=== PATIENT | female | born 1935 | race Caucasian/White ===

== ENCOUNTER → 2017-11-29 | Outpatient (CLI) | payer OTHER ==
[~2017-11-29] MED LIST: ASPIR 8181 M1 PO; ASPIR 8181 MG PER TUBE; ASPIRIN81 M2 PO; ATENOLOL 100MG100 MG PO; ATORVASTATIN CA40 MG PO; CARDIZEM CD240 MG PO; CLOPIDOGREL75 MG PO; COZAAR 25 MG TA25 M2 PO; COZAAR 50 MG TA50 M2 PO; ELIQUIS2.5 MG PO; FISH OIL 1,001000 M2 PO; HYDROCHLOROTHIA25 M1 PO; HYDROCODON-ACE1 EAC7 PO; IRON325 PO; K-DUR10 MEQ PO; LEVOTHYROXINE 0.1 MG PO; LIDODERM 5%1 PATC1 TRANSDERM; LO-DOSE ASPIRIN81 M1 PO; LOPRESSOR25 PO; MOBIC15 MG PO; NITROGLYCERIN0.4 MG SUBLING; NORCO 5-325 TA1 EACH PO; OXYCODONE HCL 55 MG PO; PLAVIX 75 MG TA75 M1 PO; SAVAYSA60 MG PO; SYNTHROID112 MC1 PO; TRANSDERM-SCOP1 EACH TRANSDERM; XALATAN2.5 ML OPHTHALMIC
== END ==
LOC: M.ULTRA 09:19
DX: I15.0 Renovascular hypertension (principal); N28.1 Cyst of kidney, acquired; I70.1 Atherosclerosis of renal artery; I70.213 Atherosclerosis of native arteries of extremities with intermittent claudication, bilateral legs

== ENCOUNTER 2018-01-01 10:32 | Inpatient (IN) | payer OTHER ==
[2018-01-01] VITALS (12 sets, daily range): BP systolic 119–149; BP diastolic 35–67
[~2018-01-01] VITALS: Ht 154.9 cm; Wt 76.2 kg
[~2018-01-01 10:32] MED LIST changes: -ELIQUIS2.5 MG PO; -HYDROCODON-ACE1 EAC7 PO; -OXYCODONE HCL 55 MG PO; -SYNTHROID112 MC1 PO; -TRANSDERM-SCOP1 EACH TRANSDERM
[2018-01-01 11:10] LABS: ABSOLUTE BASOPHILS 0.1 thou/uL (0.0-0.2); ABSOLUTE EOSINOPHILS 0.2 thou/uL (0.0-0.7); ABSOLUTE LYMPHOCYTES 2.2 thou/uL (0.8-5.3); BASOPHILS 1.3 %; EOSINOPHILS 1.7 %; HEMATOCRIT 41.6 % (37.0-47.0); HEMOGLOBIN 13.4 gm/dL (12.0-15.0); LYMPHOCYTES 19.4 %; MCH 26.8 pg (26.0-34.0); MCHC 32.1 g/dL (28.0-37.0); MCV 83.5 fL (80.0-100.0); MONOCYTES 8.8 %; MPV 7.1 fl. (7.2-11.1); NUCLEATED RBCS 0 /100WBC; PLATELET COUNT* 401 thou/uL (150-400); POLYS 68.8 %; RBC 4.99 mil/uL (4.20-5.00); RDW-CV 18.4 % (10.5-14.5); WBC 11.6 thou/uL (4.0-11.0)
[2018-01-01 11:21] LABS: APTT 27.8 Seconds (25.0-31.3)
[2018-01-01 11:27] LABS: CALCIUM 8.9 mg/dL (8.5-10.1); CREATININE 0.8 mg/dL (0.6-1.3); POTASSIUM 3.4 mmol/L (3.5-5.1)
[2018-01-01 11:32] LABS: ALBUMIN 3.3 g/dL (3.4-5.0); TOTAL BILIRUBIN 0.6 mg/dL (<0.1-1.0); TOTAL PROTEIN 7.4 g/dL (6.4-8.2)
--- NOTE | 2018-01-01 16:11 | NUR ---
PATIENT TRANSFERRED FROM IR TO ROOM 111. ALERT AND ORIENTED. DENIES PAIN. RIGHT GROIN SITE C/D/I. VSS. ADMISSION HISTORY AND ASSESSMENT CHARTED. FAMILY AT BEDSIDE. LIQUIDS PROVIDED. WILL CONTINUE TO MONITOR.
[2018-01-01] MEDS ORDERED: CLOPIDOGREL75 MG PO (21:49)
[2018-01-01] MEDS ORDERED: HYDROCODON-ACE1 EAC7 PO (21:49)
[2018-01-02 01:24] VITALS: BP 119/38
[2018-01-02 01:59] VITALS: BP 119/38
[2018-01-02 03:41] VITALS: BP 130/51
[2018-01-02 04:25] LABS: CALCIUM 8.2 mg/dL (8.5-10.1); CREATININE 0.7 mg/dL (0.6-1.3); POTASSIUM 4.2 mmol/L (3.5-5.1)
[2018-01-02 04:34] LABS: HEMATOCRIT 36.3 % (37.0-47.0); HEMOGLOBIN 11.9 gm/dL (12.0-15.0); MCH 27.1 pg (26.0-34.0); MCHC 32.9 g/dL (28.0-37.0); MCV 82.6 fL (80.0-100.0); MPV 7.2 fl. (7.2-11.1); RBC 4.4 mil/uL (4.20-5.00); RDW-CV 18.4 % (10.5-14.5); WBC 7.9 thou/uL (4.0-11.0)
--- NOTE | 2018-01-02 05:11 | NUR ---
PATIENT HAS REMAINED ALERT AND ORIENTED X 4 THROUGHOUT THE SHIFT AND RESTING QUIETLY ON HOURLY ROUNDS. VITAL SIGNS HAVE REMAINED STABLE. DRESSING RIGHT GROIN CLEAN, DRY AND INTACT. NO CIRCULATORY COMPROMISE. UP TO VOID IN BR. STEADY GAIT. IVF'S, ANTIBIOTICS AND MEDS PER ORDERS. DISCHARGE THIS AM PER ORDERS. CONTINUE TO MONITOR.
[2018-01-02 07:57] VITALS: BP 156/64
[2018-01-02 08:05] VITALS: BP 119/38
[2018-01-02 09:35] VITALS: BP 119/38
--- NOTE | 2018-01-02 09:36 | NUR ---
PATIENT LEFT UNIT AT 0845. ALERT AND ORIENTED X4. UP STAND BY ASSIST IN ROOM. IV DC'D. DENIES NEED FOR PAIN MEDICATION. DENIES NAUSEA. ALL PERSONAL ITEMS LEFT WITH PATIENT. DISCHARGE INSTRUCTIONS, PRESCRIPTIONS, AND NEW MEDICATION INFORMATION SENT WITH PATIENT. VSS ON ROOM AIR. HOURLY ROUNDS HAVE BEEN MAINTAINED THROUGHOUT SHIFT. LEFT WITH SPOUSE VIA CAR.
--- NOTE | 2018-01-04 14:19 | OP ---
[facility] [address] [place] [address] OPERATIVE REPORT Name: BUZZ SANDOVAL Room: [address] IN M.R.#: [id number] Admission: 01/01/18 Attend Phys: Rolf Lebron Discharge: 01/02/18 Date of : 37 Report #: [id number] THIS REPORT FOR: //name// CC: [place] [facility] DATE OF SERVICE: 01/01/2018 PREOPERATIVE DIAGNOSIS: Refractory hypertension, right renal artery stenosis. POSTOPERATIVE DIAGNOSIS: Refractory hypertension, right renal artery stenosis. SURGEON: Dakota Montanez DO. PAINTING AND COATING WORKER: Pamela Garcia PA-C. PROCEDURE: 1. Ultrasound-guided access, right common femoral artery. 2. Limited aortogram. 3. Selective angiography, left renal artery. 4. Selective cannulation, right renal artery with angioplasty and a stent using Herculink 6 mm x 15 mm balloon expandable stent. 5. Limited angiogram, right common femoral artery. 6. Angio-Seal closure, right common femoral artery. ESTIMATED BLOOD LOSS: Minimal. SPECIMEN: None. COMPLICATIONS: None. CONDITION: Stable. DISPOSITION: Observation. INDICATIONS FOR THE PROCEDURE AND CONSENT: The patient is an 82-year-old female with history of renal artery stenosis and refractory hypertension. She is status post left renal artery angioplasty and stent. She has been followed with renal duplexes on an annual basis. She was seen by her physician practice consultant, Dr. Adan, who reported that he was having more and more difficulty with controlling her hypertension and previously had better control after her previous intervention. Repeat duplex demonstrated her left renal artery stent to be patent, but with a concern for more severe stenosis of the right renal artery. Recommendation for angiography was made. Risks and benefits were [address] [address] OPERATIVE REPORT Name: BUZZ SANDOVAL Room: [address]#: [id number] Admission: 01/01/18 Attend Phys: Rolf Lebrno Discharge: 01/02/18 Date of : 37 Report #: [id number] discussed with the patient including infection, bleeding, renal failure, damage to the renal arteries, damage to her lower extremity arteries, embolization and complications related to sedation. The patient did, of note, wish to stay overnight due to living more than 2 hours away and stating that they have difficulty with if there is bleeding or emergency that it takes at least 30-40 minutes to get an ambulance to her house. She intended to stay overnight for observation to avoid due to the risk of at her access site. PROCEDURE IN DETAIL: After timeout was performed, the patient was placed in supine position with sterile prep and drape of the anterior abdomen, bilateral groins, bilateral thighs. Ultrasound was utilized to identify the right common femoral artery and Seldinger technique used to place 6-Greenlandic sheath. Glidewire Advantage and UF catheter were advanced into the pararenal aorta and aortogram performed. This demonstrated the aorta to be widely patent. The bilateral renal arteries appeared to be patent. The left renal artery stent appeared to be wide open, although the origin could not be well visualized initially. This angled views also appeared to demonstrate patency with rapid flow. The patient was administered 6000 units of heparin and was allowed to circulate for 3 minutes. I did select the left renal artery with the Glidewire Advantage and negotiated the UF catheter tip into the renal artery and slow injection revealed a better picture and this did demonstrate the left renal artery to be completely free of stenosis and I was happy with the imaging. I then performed angled views of the right renal artery as well. This demonstrated at least a 60% stenosis of the right renal artery just beyond its origin. There is one image that appeared to have severe stenosis in this at least 70%. As the patient has been having more difficulty with controlling blood pressure, I did feel it is reasonable to treat this as discussed with the patient preoperatively. I then selected the right renal artery with Glidewire Advantage and UF catheter and then exchanged the short 6-Greenlandic sheath for a long 6-Greenlandic sheath to allow for better support. I then exchanged the 0.035 Glidewire Advantage for an 0.018 Glidewire Advantage. This started only before an 0.014 wire. I then obtained a 6 x 15 Herculink stent advanced into position under fluoroscopic magnified views. Prior to deployment using the long 6-Greenlandic sheath, I was able to perform another aortogram to confirm positioning and then deployed the stent. Repeat angiography demonstrated excellent radiographic result without flow limitation or stenosis. The wire and stent were then removed. The 0.035 Glidewire Advantage was then placed back to a 6-Greenlandic sheath and the 6-Greenlandic sheath retracted in the right external iliac artery and limited angiogram of the right external common and proximal superficial femoral arteries were then performed, which demonstrated the external common and femoral vessels to be widely patent without flow limitation or stenosis and appropriate for Angio-Seal closure. The 6-Greenlandic Angio-Seal was selected and advanced in position in standard fashion and deployed. Additional 2 minutes pressure was held for hemostasis. All lap, needle and instrument counts were correct. The [address] [place] [address] OPERATIVE REPORT Name: BUZZ SANDOVAL Room: [address]#: [id number] Admission: 01/01/18 Attend Phys: Rolf Lebron Discharge: 01/02/18 Date of : 37 Report #: [id number] patient tolerated the procedure well. The patient was transferred to recovery in stable condition. <ELECTRONICALLY SIGNED> By: Dakota Montanez DO 01/04/18 1419 1256 1329Dakota Montanez DO /nt
[2018-06-26] MEDS ORDERED: SYNTHROID112 MC1 PO (13:59)
== END 2018-01-02 08:45 | disposition home or self-care (01) | DRG 674 ==
LOC: M.INT 10:32 → M.ORTHSURG 15:36 → M.TBA 15:36 → M.ORTHSURG 15:43
PROVIDERS: Surgery; ADMIT Internal Medicine
PROC: 04C Lower Arteries, Extirpation (ICD-10-PCS; principal; 2018-01-01)
PROC: 047Y3ZZ Dilation of Lower Artery, Percutaneous Approach (ICD-10-PCS; principal; 2018-01-01)
PROC: B4171ZZ Fluoroscopy of Left Renal Artery using Low Osmolar Contrast (ICD-10-PCS; principal; 2018-01-01)
PROC: B41F1ZZ Fluoroscopy of Right Lower Extremity Arteries using Low Osmolar Contrast (ICD-10-PCS; principal; 2018-01-01)
DX: I70.1 Atherosclerosis of renal artery (principal); R71.0 Precipitous drop in hematocrit; E03.9 Hypothyroidism, unspecified; I25.10 Atherosclerotic heart disease of native coronary artery without angina pectoris; I48.91 Unspecified atrial fibrillation; I73.9 Peripheral vascular disease, unspecified; I10 Essential (primary) hypertension; Z79.899 Other long term (current) drug therapy; Z90.710 Acquired absence of both cervix and uterus; Z95.1 Presence of aortocoronary bypass graft; Z98.49 Cataract extraction status, unspecified eye; Z82.49 Family history of ischemic heart disease and other diseases of the circulatory system

== ENCOUNTER → 2018-06-25 | Outpatient (CLI) | payer OTHER ==
[~2018-06-25] MED LIST changes: +ELIQUIS2.5 MG PO; +HYDROCODON-ACE1 EAC7 PO; +OXYCODONE HCL 55 MG PO; +SYNTHROID112 MC1 PO; +TRANSDERM-SCOP1 EACH TRANSDERM
== END ==
LOC: M.MRI 06-16 12:31
DX: S83.231A Complex tear of medial meniscus, current injury, right knee, initial encounter (principal); S83.271A Complex tear of lateral meniscus, current injury, right knee, initial encounter; S83.282A Other tear of lateral meniscus, current injury, left knee, initial encounter; S83.242A Other tear of medial meniscus, current injury, left knee, initial encounter; M17.0 Bilateral primary osteoarthritis of knee; M71.21 Synovial cyst of popliteal space [Baker], right knee; M71.22 Synovial cyst of popliteal space [Baker], left knee; M25.462 Effusion, left knee; M25.461 Effusion, right knee; I10 Essential (primary) hypertension; I48.91 Unspecified atrial fibrillation; E03.9 Hypothyroidism, unspecified; I25.10 Atherosclerotic heart disease of native coronary artery without angina pectoris; X58.XXXA Exposure to other specified factors, initial encounter; Y93.89 Activity, other specified; Y92.89 Other specified places as the place of occurrence of the external cause; Y99.8 Other external cause status

== ENCOUNTER → 2018-06-27 | Outpatient (CLI) | payer OTHER ==
--- NOTE | 2018-06-27 16:48 | EKG ---
[place] [address] ELECTROCARDIOGRAM REPORT Name: BUZZ SANDOVAL MIK Room: [facility]#: [id number] Admission: 06/27/18 Attend Phys: Manohar Jackson MD Discharge: Date of : 36 Report #: [id number] THIS REPORT FOR: //name// [facility] Test Date: 2018-06-27 Test Time: 14:39:20 Pat Name: BUZZ SANDOVAL Department: Room: Gender: F Archeologist Classical: : 1935 Requested By: Manohar Cavazos Order Number: [id number] Reading MD: Yandel Taveras Measurements Intervals [place] Rate: 52 P: -10 GA: 166 QRS: 2 QRSD: 103 T: 54 QT: 474 QTc: 441 Interpretive Statements Sinus rhythm RSR' in V1 or V2, right VCD or RVH Compared to ECG 04/25/2017 13:21:47 Right ventricular hypertrophy now present RSR' in V1 or V2 now present Incomplete right bundle-branch block no longer present Prolonged QT interval no longer present Electronically Signed On 06-27-2018 16:48:33 CDT by Yandel Taveras [email or web address] <ELECTRONICALLY SIGNED> By: Yandel Taveras MD, FAC 06/27/18 1648 1439 1439 Yandel Taveras MD, FAC /EPI
== END ==
LOC: M.LAB 10:34 → M.ULTRA 10:34
DX: I71.2 Thoracic aortic aneurysm, without rupture (principal); I70.213 Atherosclerosis of native arteries of extremities with intermittent claudication, bilateral legs; I51.7 Cardiomegaly; J98.4 Other disorders of lung; M25.78 Osteophyte, vertebrae; I50.9 Heart failure, unspecified

== ENCOUNTER 2018-07-14 06:34 | Inpatient (IN) | payer OTHER ==
[2018-06-27 14:23] LABS: ABSOLUTE BASOPHILS 0.1 thou/uL (0.0-0.2); ABSOLUTE EOSINOPHILS 0.2 thou/uL (0.0-0.7); ABSOLUTE LYMPHOCYTES 1.5 thou/uL (0.8-5.3); ABSOLUTE MONOCYTES 0.8 thou/uL (0.0-1.2); ABSOLUTE NEUTROPHILS 6.5 thou/uL (1.6-8.1); BASOPHILS 1.1 %; EOSINOPHILS 1.8 %; HEMATOCRIT 45.6 % (37.0-47.0); HEMOGLOBIN 15.1 gm/dL (12.0-15.0); LYMPHOCYTES 17.1 %; MCH 29.9 pg (26.0-34.0); MCHC 33.1 g/dL (28.0-37.0); MCV 90.3 fL (80.0-100.0); MONOCYTES 8.4 %; NUCLEATED RBCS 0 /100WBC; PLATELET COUNT* 302 thou/uL (150-400); POLYS 71.6 %; RBC 5.05 mil/uL (4.20-5.00); RDW-CV 18.7 % (10.5-14.5)
[2018-06-27 14:34] LABS: APTT 27.5 Seconds (25.0-31.3); PROTIME 10.1 Seconds (9.20-11.50)
[2018-06-27 14:37] LABS: ALBUMIN 3.6 g/dL (3.4-5.0); CALCIUM 8.4 mg/dL (8.5-10.1); CREATININE 0.8 mg/dL (0.6-1.3); POTASSIUM 3.3 mmol/L (3.5-5.1); TOTAL BILIRUBIN 0.6 mg/dL (<0.1-1.0); TOTAL PROTEIN 7.3 g/dL (6.4-8.2)
[2018-06-27 15:28] LABS: ESR (SEDRATE) 8 mm/hr (0-30)
[~2018-07-14] VITALS: Ht 154.9 cm; Wt 74.8 kg
[~2018-07-14 06:34] MED LIST changes: -ELIQUIS2.5 MG PO; -OXYCODONE HCL 55 MG PO; -TRANSDERM-SCOP1 EACH TRANSDERM
[2018-07-14 07:00] VITALS: BP 162/62
[2018-07-14 12:45] VITALS: BP 151/56
[2018-07-14 16:00] VITALS: BP 166/58
--- NOTE | 2018-07-14 17:50 | NUR ---
ASSUMED CARE OF PATIENT AT 1225. PT ALERT AND ORIENTED X 4. IV PATENT. DENIES NAUSEA. REPORTS PAIN AT 3/10. MEPILEX DRESSING DRY/INTACT. BILAT BRIT HOSE ON. OXYGEN ON AT 2L/NC. ICE PACK ON RIGHT KNEE. PT ORIENTED TO ROOM. WILL USE CALL LIGHT FOR ASSISTANCE. CALL LIGHT WITHIN REACH. NURSING TO CONTINUE TO MONITOR.
--- NOTE | 2018-07-14 20:13 | NUR ---
PT ALERT AND ORIENTED X 4. IVF INFUSING AT 75 MLS/HR. RECEIVED IV ZOFRAN FOR NAUSEA AND IV MORPHINE FOR PAIN. OXYGEN ON @ 2 L/NC. MEPILEX DRESSING IN PLACE DRY AND INTACT. BILAT TEDS ON. ICE PACK IN PLACE. PT UP WITH ASSIST X 2 TO BSC TO VOID. HOURLY ROUNDS MAINTAINED. VS STABLE. WILL USE CALL LIGHT FOR ASSISTNCE. CALL LIGHT WITHIN REACH. AT BEDSIDE. NURSING TO CONTINUE TO MONITOR.
[2018-07-14 21:00] VITALS: BP 126/64
[2018-07-14 23:57] VITALS: BP 140/65
[2018-07-15 04:17] VITALS: BP 131/60
[2018-07-15 04:31] LABS: HEMATOCRIT 40.7 % (37.0-47.0); HEMOGLOBIN 13.3 gm/dL (12.0-15.0); MCHC 32.7 g/dL (28.0-37.0); MCV 91.7 fL (80.0-100.0); MPV 7.3 fl. (7.2-11.1); RBC 4.43 mil/uL (4.20-5.00); RDW-CV 18.3 % (10.5-14.5); WBC 13.5 thou/uL (4.0-11.0)
[2018-07-15 04:50] LABS: CALCIUM 8.3 mg/dL (8.5-10.1); CREATININE 0.8 mg/dL (0.6-1.3); POTASSIUM 4.2 mmol/L (3.5-5.1)
[2018-07-15 07:35] VITALS: BP 143/65
--- NOTE | 2018-07-15 08:30 | NUR ---
PATIENT HAS SLEPT WELL THROUGHOUT THE NIGHT WITHOUT ANY ISSUES. PAIN WELL CONTROLLED WITH ORAL PAIN MEDICATION AND CHARTED. VSS ON 2L 02 VIA NASAL CANNULA AND CAPNO IN PLACE. DRESSING TO RIGHT KNEE IS C/D/I, AND SCD'S AND BRIT HOSE IN PLACE. IV IN RIGHT FOREARM-SL. PATIENT INSTRUCTED TO USE CALL LIGHT WHEN NEEDING ASSISTANCE. HOURLY ROUNDS MADE. WILL CONTINUE WITH PLAN OF CARE AND NURSING TO MONITOR.
--- NOTE | 2018-07-15 13:02 | NUR ---
RECIEVED O.T. ORDERS. WILL DEFER TO P.T. AT THIS TIME. PLEASE ORDER FURTHER O.T. SERVICES IF NEEDED.
[2018-07-15 16:34] VITALS: BP 155/72
--- NOTE | 2018-07-15 16:39 | NUR ---
SPOKE WITH PT.AND . [place] PT.HAS A WALKER AND STOOL RISER. SHE IS NORMALLY INDEPENDENT. VERY SUPPORTIVE. PT.SAID THEIR CHILDREN LIVE UP HERE. USED [facility] ABOUT A YEAR AGO. THEY WOULD LIKE TO USE THEM AGAIN FOR 1-2 WEEKS AND THEN TRANSITION TO OUTPT.THERAPY. WILL MAKE REFERRAL TO [facility] IN AM. CALLED IN PRESCRIPTION FOR ELIQUIS, WRITTEN, TO [facility] IN [place] [phone]. WILL CALL IN AM FOR COPAY.
--- NOTE | 2018-07-15 18:53 | NUR ---
PT ALERT AND ORIENTED X 4. DENIES NAUSEA. PT INDICATED PAIN 03/30. IV PATENT. PAIN MANAGED DURING SHIFT WITH PO OXYCONDONE. PT IS CURRENTLY ON RA. MEPILEX DRESSING DRY/INTACT. BILAT TEDS IN PLACE. ICE PACK IN USE. UP WITH THERAPY IN MORNING AND AFTERNOON. VS STABLE. HOURLY ROUNDS MAINTAINED. WILL USE CALL LIGHT FOR ASSISTANCE. AT BEDSIDE. CALL LIGHT WITHIN REACH. NURSING TO CONTINUE TO MONITOR.
[2018-07-16] VITALS: BP 138/47
[2018-07-16 04:00] VITALS: BP 111/57
[2018-07-16 04:15] LABS: HEMATOCRIT 38.9 % (37.0-47.0); HEMOGLOBIN 12.9 gm/dL (12.0-15.0); MCH 30.4 pg (26.0-34.0); MCHC 33.2 g/dL (28.0-37.0); MCV 91.6 fL (80.0-100.0); MPV 7.3 fl. (7.2-11.1); RBC 4.24 mil/uL (4.20-5.00); RDW-CV 18.2 % (10.5-14.5); WBC 10.8 thou/uL (4.0-11.0)
[2018-07-16 04:33] LABS: CALCIUM 8.6 mg/dL (8.5-10.1); CREATININE 0.8 mg/dL (0.6-1.3); POTASSIUM 3.4 mmol/L (3.5-5.1)
[2018-07-16 08:01] VITALS: BP 156/67
[2018-07-16 09:06] VITALS: BP 156/67
[2018-07-16] MEDS ORDERED: OXYCODONE HCL 55 MG PO (09:35)
[2018-07-16] MEDS ORDERED: TRANSDERM-SCOP1 EACH TRANSDERM (09:35)
[2018-07-16 11:08] VITALS: BP 156/67
[2018-07-16] MEDS ORDERED: ELIQUIS2.5 MG PO (11:08)
[2018-07-16 12:19] VITALS: BP 156/67
--- NOTE | 2018-07-16 12:24 | NUR ---
COPAY FOR DIAMOND IS $21. WILL INFORM PT. REFERRAL MADE TO [facility]-[phone]. FAXED INFORMATION TO INTAKE AT [phone] DISCHARGE PLANNED FOR TODAY.
--- NOTE | 2018-07-16 13:52 | NUR ---
I have reviewed and agree with student nurse Jordyn Musa's reassessment.
--- NOTE | 2018-07-16 15:18 | NUR ---
ASSUMED CARE OF PATIENT AFTER MORNING REPOAT AT APPROX 0730. ALERT AND ORIENTED X4. ASSESSMENT COMPLETED AND CHARTED. VSS ON ROOM AIR. NO COMPLAINTS OF SOA. PAIN AND NAUSEA HAVE BEEN MANAGED WITH MEDICATIONS. PATIENT WORKED WELL WITH THERAPIES. PATIENT DISCHARGED WITH [facility] AT 1500, WITH ALL PERSONAL BALONGINGS, PRESCRIPTIONS, AND DISCHARGE INFORMATION.
--- NOTE | 2018-07-21 08:23 | OP ---
[address] [address] OPERATIVE REPORT Name: BUZZ SANDOVAL Room: [address] IN .R.#: [id number] Admission: 07/14/18 Attend Phys: Rolf Lebron Discharge: 07/16/18 Date of : 36 Report #: [id number] THIS REPORT FOR: //name// CC: [place] [facility] DICTATED BY: Anson Mcdonald DO DATE OF SERVICE: 07/14/2018 DICTATED BY: This is Anson Mcdonald DO dictating an Orthopedic Surgery operative report on behalf of Dr. Manohar Cavazos. PREOPERATIVE DIAGNOSIS: Right knee degenerative joint disease. POSTOPERATIVE DIAGNOSIS: Right knee degenerative joint disease. PROCEDURE: Right total knee arthroplasty utilizing the Mitchell and Nephew Legion knee components utilizing Visionaire-type custom cutting blocks with the following components: 1. Size 4 right PS Legion femoral component. 2. Size 3 Little II right tibial baseplate. 3. Size 3/4, 11-mm Legion PS high-flexion articular insert. 4. A 29 mm oval patella. 5. One bag of Palacos bone cement. SURGEON: Manohar Cavazos DO. WALL CLEANER: Anson Mcdonald DO. ANESTHESIA: Spinal with monitored anesthesia care throughout the case. ANTIBIOTICS: Two grams Ancef IV preoperatively. ESTIMATED BLOOD LOSS: 100 mL. SPECIMENS: None. COMPLICATIONS: None. DISPOSITION: Stable to PACU. He will be admitted to the hospital for standard postoperative care. INDICATION FOR PROCEDURE: The patient is a pleasant 83-year-old female who was seen in Orthopedic Clinic with complaints of chronic right knee pain. On x-ray, [address] [place] [address] OPERATIVE REPORT Name: BUZZ SANDOVAL Room: [address] IN [facility].#: [id number] Admission: 07/14/18 Attend Phys: Rolf Lebron Discharge: 07/16/18 Date of : 36 Report #: [id number] she had significant advanced degenerative changes of right knee. Pain was refractory to conservative measures and impacting her quality of life. It did not respond over 6 months' time with a trial of home physical therapy exercise, activity modifications, oral anti-inflammatories and occasional intra-articular corticosteroid injections. Therefore, we recommended proceeding with a right total knee arthroplasty. Risks, benefits, complications, indications and alternative treatments were discussed and the patient wished to proceed with surgery today. DESCRIPTION OF PROCEDURE: The patient was seen in preoperative holding area and correct operative site, right knee, was initialed. The patient was taken back to the operating suite, placed in supine position on the operating table, given the benefit of general anesthetic. A well-padded tourniquet was placed to the right upper thigh. A spinal had been performed by Anesthesia and they provided light sedation throughout the case; this was not a general. Next, the right lower extremity was prepped and draped in typical fashion. Surgery began with a time-out identifying correct patient, correct procedure, correct operative site, preoperative antibiotics and correct performing surgeon. Next, standard anterior midline incision was made directly overlying the right knee, extending from roughly 3 cm proximal to the superior pole of the patella, extending longitudinally down to the tibial tubercle. Skin was incised with a 20 blade scalpel down to the prepatellar fascia. Medial parapatellar arthrotomy was performed utilizing a new 10 blade scalpel. Patella was everted, knee was flexed. A custom distal femoral cutting block was pinned into place appropriately. Distal femoral cut was performed. A size 4 four-in-one cutting block was then impacted on to the distal femur. Anterior, posterior and anterior-posterior chamfer cuts were made. It seemed to be a rather appropriate size of the component and appropriate rotation for a 4-in-1 cutting block. Next, attention was turned to her tibia. Utilizing the custom tibia cutting block, this was held in place and pinned appropriately. A proximal tibial cut was carried out, protecting our ligamentous and neurovascular structures. Menisci were excised using electrocautery. Remnants of PCL were also debrided at this time. Trial tibia size 3 baseplate was pinned into place in the pre-drilled holes, followed by a trial femoral component. A trial PS insert was then inserted. Attention was turned to the patella. It was resurfaced utilizing the Nigel patellar reamer system. It was drilled to appropriate size, which was size 29 and trial patellar component was inserted. The patella seemed to be tracking appropriately. Knee was stable to varus and valgus stress with an 11-mm trial well as it had full flexion and full extension. Tibia was drilled and a cruciate punched. Box cut was made for our femoral component after initially placing our trial femur in place. Now, all [place] [address] OPERATIVE REPORT Name: BUZZ SANDOVAL Room: [address] .R.#: [id number] Admission: 07/14/18 Attend Phys: Rolf Lebron Discharge: 07/16/18 Date of : 36 Report #: [id number] surfaces were thoroughly irrigated using pulsatile lavage. Final implants were cemented into place in the normal fashion, starting first with the tibia followed by the femur. All excess cement was removed. Final patella button was cemented into place and held with a patellar clamp. It was taken out into extension for a very short period, with a trial 11-mm spacer. This seemed to be fitting appropriately and we then removed the trial spacer, impacted the final polyethylene spacer after one more time checking for posterior cement loose bodies. Again, final polyethylene spacer was impacted into place. Knee was taken out through range of motion one last time, felt to be stable, had full flexion and extension, great mid flexion stability. Patella was flipped into its anatomic position and the knee was let to rest at 90 degrees of flexion. Next, the knee was thoroughly irrigated. Capsule was closed with a few [id number] type #1 Vicryl sutures, followed by running #1 Stratafix suture. Subcutaneous tissues were closed in a simple inverted fashion with 2-0 Monocryl suture. A 3-0 subcuticular Stratafix running suture was performed followed by Dermabond on the skin glue. Standard dressings were applied consisting of Mepilex and a BRIT hose. The patient was weaned from her light sedation and transferred in stable condition to the PACU. All sponge and needle counts were correct x 2. <ELECTRONICALLY SIGNED> By: Manohar Cavazos DO 07/21/18 0823 1108 [id number] Joce Cavazos DO /nt
== END 2018-07-16 15:00 | disposition home health service (06) | DRG 470 ==
LOC: M.PRE → M.TBA 06:38 → M.ORTHSURG 06:38 → M.PRE 06:57 → M.ORTHSURG 12:15 → M.PRE 15:48 → M.ORTHSURG 07-16 15:00
PROVIDERS: Internal Medicine; Orthopaedic Surgery; ADMIT Internal Medicine
PROC: 0SRC0J9 Replacement of Right Knee Joint with Synthetic Substitute, Cemented, Open Approach (ICD-10-PCS; principal; 2018-07-14)
DX: M17.11 Unilateral primary osteoarthritis, right knee (principal); I25.10 Atherosclerotic heart disease of native coronary artery without angina pectoris; I48.91 Unspecified atrial fibrillation; I11.0 Hypertensive heart disease with heart failure; I50.9 Heart failure, unspecified; E03.9 Hypothyroidism, unspecified; I71.2 Thoracic aortic aneurysm, without rupture; Z79.899 Other long term (current) drug therapy; Z91.048 Other nonmedicinal substance allergy status; Z95.1 Presence of aortocoronary bypass graft; I25.2 Old myocardial infarction; Z90.710 Acquired absence of both cervix and uterus; Z98.49 Cataract extraction status, unspecified eye; Z82.49 Family history of ischemic heart disease and other diseases of the circulatory system

== ENCOUNTER → 2021-12-05 | Outpatient (CLI) | payer MEDICARE ==
[~2021-12-05] MED LIST changes: +ELIQUIS2.5 MG PO; +OXYCODONE HCL 55 MG PO; +TRANSDERM-SCOP1 EACH TRANSDERM
--- NOTE | 2021-12-05 13:42 | 2DMMODE ---
[place] [address] 2 D/M-MODE ECHOCARDIOGRAM Name: LORIBUZZ TAMEN Room: [facility]#: [id number] Admission: 12/05/21 Attend Phys: Dania Butler, Discharge: Date of : 37 Date of Service: 12/05/21 1342 Report #: [id number] THIS REPORT FOR: cc: FAM - No family physician/PCP FAM - No family physician/PCP Rusty Adan MD [facility] ~ APPROVED REPORT Study performed: 12/05/2021 13:45:21 EXAM: Comprehensive 2D, Doppler, and color-flow Echocardiogram Patient Location: Out-Patient BSA: 1.73 HR: 76 bpm BP: 135/72 mmHg Other Information Study Quality: Good Indications Atrial Fibrillation 2D Dimensions IVSd: 11.10 (7-11mm) LVOT Diam: 19.64 (18-24mm) LVDd: 44.40 mm PWd: 10.53 (7-11mm) Ascending Ao: 44.17 (22-36mm) LVDs: 26.00 (25-40mm) Aortic Root: 28.85 mm Volumes Left Atrial Volume (Systole) LA ESV Index: 31.80 mL/m2 Aortic Valve AoV Peak Kory.: 1.49 m/s AO Peak Gr.: 8.89 mmHg LVOT Max P.36 mmHg AO Mean Gr.: 4.74 mmHg LVOT Mean P.04 mmHg LVOT Max V: 1.04 m/s AO V2 VTI: 32.51 cm LVOT Mean V: 0.65 m/s EDILMA (VTI): 1.97 cm2 LVOT V1 VTI: 21.17 cm AI Dickson: 2.16 m/s2 AI PHT: 543.18 [place] [address] 2 D/M-MODE ECHOCARDIOGRAM Name: BUZZ SANDOVAL Room: [facility]#: [id number] Admission: 12/05/21 Attend Phys: Dania Butler, Discharge: Date of : 37 Date of Service: 12/05/21 1342 Report #: [id number] Mitral Valve MV Decel. Time: 194.76 ms MV E Max Kory.: 1.25 m/s MV PHT: 56.48 ms MVA (PHT): 3.90 cm2 TDI E/Lateral E': 6.25 E/Medial E': 10.42 Medial E' Kory.: 0.12 m/s Lateral E' Kory.: 0.20 m/s Pulmonary Valve PV Peak Kory.: 1.12 m/s PV Peak Gr.: 4.98 mmHg Tricuspid Valve RAP Estimate: 5.00 mmHg TR Peak Gr.: 24.35 mmHg RVSP: 29.35 mmHg PA Pressure: 29.35 mmHg Left Ventricle The left ventricle is normal size. There is normal LV segmental wall motion. There is normal left ventricular wall thickness. Left ventricular systolic function is normal. LVEF is 60-65%. This study is not technically sufficient to allow evaluation of the LV diastolic function due to atrial fibrillation. Right Ventricle The right ventricle is normal size. The right ventricular systolic function is normal. Atria Left atrium is moderately dilated. Right atrium is moderately dilated. Aortic Valve The aortic valve is normal in structure. Mild aortic regurgitation. There is no aortic valvular stenosis. Mitral Valve Mild mitral annular calcification. Mild mitral regurgitation. No evidence of mitral valve stenosis. Tricuspid Valve The tricuspid valve is normal in structure. Moderate tricuspid regurgitation. The RVSP is 30-[place] [address] 2 D/M-MODE ECHOCARDIOGRAM Name: BUZZ SANDVOAL Room: [facility]#: [id number] Admission: 12/05/21 Attend Phys: Dania Butler, Discharge: Date of : 37 Date of Service: 12/05/21 1342 Report #: [id number] Pulmonic Valve The pulmonary valve is normal in structure. Trace pulmonic regurgitation. Great Vessels The aortic root is normal in size. Ascending aorta is dilated. (4.6 cm). IVC is normal in size and collapses >50% with inspiration. Pericardium There is no pericardial effusion. <Conclusion> The left ventricle is normal size. There is normal left ventricular wall thickness. Left ventricular systolic function is normal. LVEF is 60-65%. Left atrium is moderately dilated. Right atrium is moderately dilated. Mild aortic regurgitation. Mild mitral regurgitation. Moderate tricuspid regurgitation. The RVSP is 30-35 mmHg. Ascending aorta is dilated. (4.6 cm). <ELECTRONICALLY SIGNED> By: Rusty Adan MD, FACC 12/05/21 134 41 41 Rusty Adan MD, FACC /INF
== END ==
LOC: M.CRD 12:28
PROVIDERS: ATTEND Nurse Practitioner
DX: I08.3 Combined rheumatic disorders of mitral, aortic and tricuspid valves (principal)